=== PATIENT | female | born 1970 | race Caucasian/White ===

== ENCOUNTER 2022-12-07 18:40 | Emergency (ER) | payer BC, OTHER, SELFPAY ==
[~2022-12-07 18:40] MED LIST: Iopamidol 370 76% 100 ML VIAL ONE
[2022-12-07] MEDS ORDERED: Ondansetron ODT 4 MG TAB ONE (19:25)
[2022-12-07] MEDS ORDERED: Sodium Chloride 0.9% 1,000 ML ONE (19:35)
[2022-12-07] MEDS ORDERED: Ketorolac Tromethamine 30 MG/ML VIAL ONE (19:35)
[2022-12-07 19:39] LABS: #Basophils 0.1 thou/uL (0.0-0.2); #Eosinphils 0.1 thou/uL (0.0-0.7); #Monocytes 0.8 thou/uL (0.11-0.59); #Neutrophils 5.6 thou/uL (1.40-6.50); %Basophils 1.2 % (0.0-1.0); %Eosinophils 0.7 % (0.0-10.0); %Lymphocytes 23.2 % (21.0-51.0); %Monocytes 8.9 % (0.0-10.0); %Neutrophils 66.1 % (42.0-75.0); Hemoglobin 15.5 g/dL (12.0-16.0); Mean Corpuscular HGB CONC 32.7 g/dL (32.0-36.0); Mean Corpuscular Hemoglobin 29.9 pg (27.0-31.0); Mean Corpuscular Volume 91.5 fl (78.0-98.0); Mean Platelet Volume 8.9 fL (7.4-10.4); Platelet Count 285 10x3/uL (130-400); RBC Distribution Width 12.1 % (11.5-14.5); White Blood Cell (WBC) Count 8.4 10x3/uL (4.8-10.8)
[2022-12-07 19:50] LABS: Anion Gap 18 mmol/L (10-20); BUN (Urea Nitrogen) 15 mg/dL (9.8-20.1); Calc. Creatinine Clearance 0 mL/min (70-130); Calcium 9.9 mg/dL (7.8-10.44); Carbon Dioxide 24 mmol/L (22-29); Chloride 103 mmol/L (98-107); Estimated GFR 75; Glucose 103 mg/dL (70-105); Potassium 3.8 mmol/L (3.5-5.1); Sodium 141 mmol/L (136-145)
[2022-12-07 19:53] LABS: ALT (SGPT) 38 U/L (8-55); AST (SGOT) 51 U/L (5-34); Albumin 4.8 g/dL (3.5-5.0); Alkaline Phosphatase 62 U/L (40-110); Bilirubin, Direct 0.5 mg/dL (0.1-0.3); Bilirubin, Total 0.9 mg/dL (0.2-1.2); Lipase 22 U/L (8-78); Protein, Total 7.2 g/dL (6.0-8.3)
[2022-12-07 19:58] LABS: Bilirubin Negative (Negative); Blood, Urine Negative (Negative); Clarity Clear (Clear); Glucose, Urine (Dipstick) Negative (Negative); Ketone, Urine 15 mg/dL (Negative); Leukocyte Negative (Negative); Nitrite Negative (Negative); Protein, Urine (Dipstick) Negative (Neg-Trace); Urobilinogen 0.2 mg/dL (Less than 2); pH, Urine 7.5 (5.0-9.0)
[2022-12-07] MEDS ORDERED: Ertapenem 1 GM VIAL ONE (20:56)
[2022-12-07] MEDS ORDERED: Sodium Chloride 0.9% 100 ML ONE (20:56)
== END 2022-12-07 23:07 | disposition short-term general hospital (02) ==
LOC: MADERS 18:40
DX: K81.0 Acute cholecystitis (principal); I10 Essential (primary) hypertension; Z79.899 Other long term (current) drug therapy
CPT/HCPCS: 74177; 80048; 80076; 81003; 83690; 85025; 96365; 96375; J1335; J1885; J3490; J7050; Q0162; Q9967